=== PATIENT | male | born 1970 | race African-American/Black ===

== ENCOUNTER 2020-05-19 23:23 | Emergency (ER) | payer MEDICAID, OTHER ==
[~2020-05-19] VITALS: Ht 180.3 cm; Wt 129.0 kg
[2020-05-19 23:30] VITALS: BP 147/100
== END 2020-05-20 00:52 | disposition left against medical advice (07) ==
LOC: ER 23:32
DX: R51.9 Headache, unspecified (principal); E11.9 Type 2 diabetes mellitus without complications; E78.00 Pure hypercholesterolemia, unspecified
CPT/HCPCS: 93005; 99283

== ENCOUNTER 2024-11-13 13:18 | Inpatient (IN) | payer MEDICAID, OTHER ==
[~2024-11-13] VITALS: Ht 180.3 cm; Wt 110.7 kg
[2024-11-13 15:00] LABS: BASOPHILS % 0.5 % (0.0-2.0); EOSINOPHILS % 0.1 % (0.0-5.0); HEMATOCRIT. 38.7 % (42.0-52.0); HEMOGLOBIN. 12.2 g/dL (14.0-18.0); LYMPHOCYTES % 13.5 % (20.0-50.0); MEAN CORPUSCULAR HEMOGLOBIN 26.4 pg (28.0-32.0); MEAN CORPUSCULAR HGB CONC 31.6 g/dL (31.0-37.0); MEAN CORPUSCULAR VOLUME 83.7 fL (80.0-94.0); MEAN PLATELET VOLUME 9.6 fl (7.4-10.4); MONOCYTES % 10.1 % (2.0-8.0); NEUTROPHILS % 75.8 % (40.0-76.0); PLATELET 206 x1000/uL (130-400); RED BLOOD CELL COUNT 4.62 mill/uL (4.7-6.1); RED CELL DISTRIBUTION WIDTH 19.8 % (11.6-14.6); WHITE BLOOD COUNT 7.3 x1000/uL (4.5-11.0)
[2024-11-13] MEDS: SODIUM CHLORIDE 0.9% 1,000 ML IV ONE (15:02)
[2024-11-13 15:09] LABS: CHLORIDE 103 mEq/L (98-107); POTASSIUM 4.8 mEq/L (3.5-5.1); SODIUM 139 mEq/L (136-145)
[2024-11-13 15:10] LABS: CALCIUM 9.4 mg/dL (8.7-10.4); CARBON DIOXIDE 21 mEq/L (21-32)
[2024-11-13 15:11] LABS: INR 1.1
[2024-11-13 15:15] LABS: CREATININE 1.6 mg/dL (0.6-1.3); ETHANOL BLOOD < 10 mg/dL (<10); UREA NITROGEN BLOOD 19 mg/dL (9-23)
[2024-11-13 15:17] LABS: BETA HYDROXYBUTYRATE 0.5 mMol/L (0.0-0.3)
[2024-11-13 15:28] LABS: CLARITY URINE CLEAR (CLEAR); COLOR URINE YELLOW (YELLOW); GLUCOSE URINE 3+ (NEGATIVE); KETONES URINE TRACE (NEGATIVE); LEUKOCYTE ESTERASE URINE NEGATIVE (NEGATIVE); NITRITE URINE NEGATIVE (NEGATIVE); OCCULT BLOOD URINE NEGATIVE (NEGATIVE); PROTEIN URINE NEGATIVE (NEGATIVE); SPECIFIC GRAVITY URINE 1.036 (1.005-1.030); UROBILINOGEN URINE 0.2 E.U./dL (0.2-1.0)
[2024-11-13 15:40] LABS: *AMPHETAMINES SCREEN URINE NEGATIVE (NEGATIVE); *BARBITURATES SCREEN URINE NEGATIVE (NEGATIVE); *BENZODIAZEPINES SCREEN URINE NEGATIVE (NEGATIVE); *COCAINE SCREEN URINE NEGATIVE (NEGATIVE); CANNABINOID URINE SCREEN NEGATIVE (NEGATIVE); ECSTASY MDMA SCREEN URINE NEGATIVE (NEGATIVE); METHADONE URINE SCREEN NEGATIVE (NEGATIVE); OPIATES URINE SCREEN NEGATIVE (NEGATIVE); PHENCYCLIDINE URINE SCREEN NEGATIVE (NEGATIVE)
[2024-11-13 15:48] LABS: GLUCOSE 443 mg/dL (70-105); TROPONIN I HIGH SENSITIVITY 77 ng/L (3.0-53)
[2024-11-13 16:03] LABS: SQUAMOUS EPITHELIAL CELL URINE FEW /lpf (RARE/1+)
[2024-11-13 16:04] LABS: BACTERIA URINE NONE SEEN; RBC URINE NONE SEEN /hpf (0-2); WBC URINE 0-2 /hpf (0-2)
[2024-11-13] MEDS: METOPROLOL TARTRATE 5MG/5ML VIAL IV NR (16:09)
[2024-11-13] MEDS: INSULIN REGULAR (HUMULIN R) 1000UNITS/10ML VIAL IV NR (16:48)
[2024-11-13] MEDS: ASPIRIN 325MG EC TABLET PO NR (16:49)
[2024-11-13 17:09] LABS: TROPONIN I HIGH SENSITIVITY 80 ng/L (3.0-53)
[2024-11-13 20:00] VITALS: BP 108/80; PULSE 118; RESP 19; TEMP 36.3; O2SAT 98
[2024-11-13 20:01] VITALS: BP 114/81; PULSE 95; RESP 19; TEMP 36.3
[2024-11-13] MEDS ORDERED: HYDROCODONE/ACETAMINOPHEN 5/325MG TABLET PO PRN (20:15)
[2024-11-13] MEDS ORDERED: NA PHOS,M-B/NA PHOS,DI-BA ENEMA 118ML PR PRN (20:15)
[2024-11-13] MEDS ORDERED: CLONIDINE 0.1MG TABLET PO PRN (20:15)
[2024-11-13] MEDS ORDERED: MAGNESIUM/ALUMINUM HYDROXIDE/SIMETHICONE 30ML UDC PO PRN (20:15)
[2024-11-13] MEDS ORDERED: ONDANSETRON HCL 4MG/2ML INJ IV PRN (20:15)
[2024-11-13] MEDS ORDERED: GUAIFENESIN 200MG/10ML SUGAR FREE UDC PO PRN (20:15)
[2024-11-13] MEDS ORDERED: DOCUSATE SODIUM 100MG CAPSULE PO PRN (20:15)
[2024-11-13] MEDS ORDERED: ACETAMINOPHEN 325MG TABLET PO PRN (20:15)
[2024-11-13] MEDS ORDERED: IPRATROPIUM/ALBUTEROL 0.5-3(2.5)MG/3ML NEB HHN PRN (20:15)
[2024-11-13] MEDS ORDERED: DEXTROSE 50% WATER 50ML SYRINGE IV PRN (20:45)
[2024-11-13] MEDS: ENOXAPARIN 120MG/0.8ML SYR SUBCUT SCH (21:12)
[2024-11-13] MEDS: INSULIN LISPRO 100 UNITS/ML SUBCUT SCH (21:13)
[2024-11-13] MEDS: BLOOD SUGAR DIAGNOSTIC STRIP TEST SCH (21:13)
[2024-11-14] VITALS (10 sets, daily range): BP systolic 87–125; BP diastolic 53–100; PULSE 65–138; RESP 18–20; TEMP 35.9–37.4; O2SAT 96–98
[2024-11-14 03:46] LABS: IRON 35 ug/dL (65-175)
[2024-11-14 03:49] LABS: CREATINE KINASE 77 IU/L (46-171); FOLIC ACID (FOLATE) SERUM 13.28 ng/mL (>5.38); TOTAL IRON BINDING CAPACITY 291 ug/dl (250-425)
[2024-11-14 03:51] LABS: FERRITIN 61 ng/mL (22-322); VITAMIN B12 SERUM 805 pg/mL (211-911)
[2024-11-14 04:08] LABS: LACTIC ACID 4.1 mmol/L (0.4-2.0); TROPONIN I HIGH SENSITIVITY 96 ng/L (3.0-53)
[2024-11-14] MEDS ORDERED: FURO20TA4 PO (04:41)
[2024-11-14] MEDS ORDERED: MEDIHONEY (04:41)
[2024-11-14] MEDS ORDERED: PRIL20 PO (04:41)
[2024-11-14] MEDS ORDERED: SPIR25TA6 PO (04:41)
[2024-11-14] MEDS ORDERED: ASPI-1160 PO (04:41)
[2024-11-14] MEDS ORDERED: AMI2 MT (04:41)
[2024-11-14] MEDS ORDERED: LORA10TA7 PO (04:41)
[2024-11-14] MEDS ORDERED: METO-385 PO (04:41)
[2024-11-14] MEDS ORDERED: GABA-1180 PO (04:41)
[2024-11-14] MEDS ORDERED: METF-907 PO (04:41)
[2024-11-14] MEDS ORDERED: APIX5TAB PO (04:41)
[2024-11-14] MEDS ORDERED: POTA-203 PO (04:41)
[2024-11-14] MEDS ORDERED: EMPA10TA PO (04:41)
[2024-11-14] MEDS ORDERED: DILT240C78 PO (04:41)
[2024-11-14] MEDS ORDERED: ATOR-2 PO (04:41)
[2024-11-14] MEDS ORDERED: SPIRONOLACTONE 25MG TABLET PO SCH (07:15)
[2024-11-14 08:51] LABS: BASOPHILS % 0.8 % (0.0-2.0); EOSINOPHILS % 0.4 % (0.0-5.0); HEMATOCRIT. 40.7 % (42.0-52.0); HEMOGLOBIN. 12.7 g/dL (14.0-18.0); LYMPHOCYTES % 29.8 % (20.0-50.0); MEAN CORPUSCULAR HEMOGLOBIN 26.5 pg (28.0-32.0); MEAN CORPUSCULAR HGB CONC 31.3 g/dL (31.0-37.0); MEAN CORPUSCULAR VOLUME 84.7 fL (80.0-94.0); MEAN PLATELET VOLUME 9.3 fl (7.4-10.4); MONOCYTES % 8.2 % (2.0-8.0); NEUTROPHILS % 60.8 % (40.0-76.0); PLATELET 206 x1000/uL (130-400); RED CELL DISTRIBUTION WIDTH 19.7 % (11.6-14.6); WHITE BLOOD COUNT 7.9 x1000/uL (4.5-11.0)
[2024-11-14] MEDS ORDERED: AMIODARONE 200MG TABLET PO SCH (09:00)
[2024-11-14] MEDS ORDERED: ASPIRIN 81MG EC TABLET PO SCH (09:00)
[2024-11-14 09:26] LABS: ALANINE AMINOTRANSFERASE 20 IU/L (10-49); CREATINE KINASE 70 IU/L (46-171)
[2024-11-14 09:27] LABS: ALBUMIN 3.8 g/dL (3.2-4.8); ASPARTATE AMINOTRANSFERASE 24 IU/L (<34); BILIRUBIN DIRECT 0.1 mg/dL (<=3.0); TROPONIN I HIGH SENSITIVITY 90 ng/L (3.0-53)
[2024-11-14 09:28] LABS: BILIRUBIN TOTAL 0.4 mg/dL (0.1-1.0); PROTEIN TOTAL 7.8 g/dL (6.0-8.3)
[2024-11-14] MEDS: PANTOPRAZOLE 40MG DR TABLET PO SCH (09:49)
[2024-11-14] MEDS: EMPAGLIFLOZIN 10MG TABLET PO SCH (09:49)
[2024-11-14] MEDS: METOPROLOL TARTRATE 25MG TABLET PO SCH (09:49)
[2024-11-14] MEDS: GABAPENTIN 300MG CAPSULE PO SCH (09:49)
[2024-11-14] MEDS: LOSARTAN 25 MG TABLET PO SCH (09:49)
[2024-11-14] MEDS: INSULIN LISPRO 100 UNITS/ML SUBCUT SCH (09:54)
[2024-11-14] MEDS: FUROSEMIDE 20MG/2ML VIAL IVP SCH (09:54)
[2024-11-14] MEDS: INSULIN GLARGINE 100 UNITS/ML SUBCUT SCH (09:55)
[2024-11-14] MEDS: DILTIAZEM HCL 30MG TABLET PO NR (10:15)
[2024-11-14 10:17] LABS: CREATININE URINE RANDOM 72.2 mg/dL
[2024-11-14 13:39] LABS: CHLORIDE 108 mEq/L (98-107); POTASSIUM 4.3 mEq/L (3.5-5.1); SODIUM 143 mEq/L (136-145)
[2024-11-14 13:40] LABS: CALCIUM 9.2 mg/dL (8.7-10.4); CARBON DIOXIDE 24 mEq/L (21-32)
[2024-11-14 13:45] LABS: TRIGLYCERIDE 105 mg/dL (0-150); UREA NITROGEN BLOOD 14 mg/dL (9-23)
[2024-11-14 13:46] LABS: LDL CHOLESTEROL 47 mg/dL (5-100)
[2024-11-14 13:47] LABS: ALBUMIN 3.5 g/dL (3.2-4.8); CHOLESTEROL 112 mg/dL (<200); HDL CHOLESTEROL 42 mg/dL (>55)
[2024-11-14 13:49] LABS: T4 FREE 1.47 ng/dL (0.89-1.76); THYROID STIMULATING HORMONE 1.94 uIU/mL (0.55-4.78)
[2024-11-14 14:06] LABS: LACTIC ACID 3.5 mmol/L (0.4-2.0)
[2024-11-14 14:11] LABS: GLUCOSE 217 mg/dL (70-105)
[2024-11-14] MEDS: DILTIAZEM HCL 60MG TABLET PO SCH (14:51)
[2024-11-14] MEDS: SODIUM HYPOCHLORITE 0.125% 473ML SOLUTION TOP SCH (14:51)
[2024-11-14] MEDS ORDERED: ATORVASTATIN CALCIUM 40MG TABLET PO SCH (21:00)
[2024-11-14] MEDS: ATORVASTATIN CALCIUM 40MG TABLET PO SCH (21:12)
[2024-11-15] VITALS (8 sets, daily range): BP systolic 105–149; BP diastolic 55–88; PULSE 72–120; RESP 18–20; TEMP 35.9–37.2; O2SAT 96–98
[2024-11-15] MEDS: MELATONIN 3MG TABLET PO PRN (02:06)
[2024-11-15 06:04] LABS: CARBON DIOXIDE 22 mEq/L (21-32); CHLORIDE 107 mEq/L (98-107); POTASSIUM 4.4 mEq/L (3.5-5.1); SODIUM 142 mEq/L (136-145)
[2024-11-15 06:09] LABS: CREATININE 1.2 mg/dL (0.6-1.3)
[2024-11-15 06:11] LABS: GLUCOSE 253 mg/dL (70-105); UREA NITROGEN BLOOD 19 mg/dL (9-23)
[2024-11-15 06:23] LABS: HEMATOCRIT 36.9 % (42.0-52.0); HEMOGLOBIN 11.8 g/dL (14.0-18.0); MEAN CORPUSCULAR HEMOGLOBIN 26.1 pg (28.0-32.0); MEAN CORPUSCULAR VOLUME 81.6 fL (80.0-94.0); PLATELET 190 x1000/uL (130-400); RED BLOOD CELL COUNT 4.52 mill/uL (4.7-6.1)
[2024-11-15] MEDS: ACETAMINOPHEN 325MG TABLET PO PRN (09:07)
[2024-11-16] MEDS ORDERED: SPIRONOLACTONE 25MG TABLET PO SCH (09:00)
== END 2024-11-15 16:30 | disposition home or self-care (01) | DRG 201 ==
LOC: ER 13:18 → EDBEDREQ 17:25 → 7WST 18:01
PROVIDERS: ADMIT Hospitalist; ATTEND Hospitalist
DX: I48.91 Unspecified atrial fibrillation (principal); I21.A1 Myocardial infarction type 2; I50.23 Acute on chronic systolic (congestive) heart failure; I42.9 Cardiomyopathy, unspecified; E11.65 Type 2 diabetes mellitus with hyperglycemia; I13.0 Hypertensive heart and chronic kidney disease with heart failure and stage 1 through stage 4 chronic kidney disease, or unspecified chronic kidney disease; E11.22 Type 2 diabetes mellitus with diabetic chronic kidney disease; E78.00 Pure hypercholesterolemia, unspecified; I25.10 Atherosclerotic heart disease of native coronary artery without angina pectoris; S91.301A Unspecified open wound, right foot, initial encounter; N18.9 Chronic kidney disease, unspecified; S91.302A Unspecified open wound, left foot, initial encounter; S90.122A Contusion of left lesser toe(s) without damage to nail, initial encounter; R26.9 Unspecified abnormalities of gait and mobility; Z79.01 Long term (current) use of anticoagulants; Z79.4 Long term (current) use of insulin; Z79.82 Long term (current) use of aspirin; Z79.84 Long term (current) use of oral hypoglycemic drugs; Z79.899 Other long term (current) drug therapy; Z87.891 Personal history of nicotine dependence; Z89.431 Acquired absence of right foot; W01.0XXA Fall on same level from slipping, tripping and stumbling without subsequent striking against object, initial encounter; Y93.89 Activity, other specified; Y92.89 Other specified places as the place of occurrence of the external cause; Y99.8 Other external cause status
CPT/HCPCS: 36415; 71045; 73630; 73718; 80048; 80061; 80076; 80305; 80320; 81003; 82010; 82040; 82550; 82570; 82607; 82728; 82746; 82962; 83036; 83540; 83550; 83605; 83880; 83930; 83935; 84300; 84439; 84443; 84484; 84540; 85025; 85027; 85379; 93005; 93306; 93923; 97162; 97166; 97530; 97535; 99285; A4606; J1650; J1815; J1940; J3490; J7030; G0480

== ENCOUNTER 2025-06-18 19:45 | Inpatient (IN) | payer MEDICAID ==
[~2025-06-18] VITALS: Ht 177.8 cm; Wt 102.1 kg
[~2025-06-18 19:45] MED LIST: AMIO200T8 MT; APIX5TAB PO; ASPI-1160 PO; ATOR-2 PO; DILT240C78 PO; EMPA10TA PO; FURO20TA4 PO; GABA-1180 PO; LORA10TA7 PO; METF-907 PO; METO-385 PO; POTA-203 PO; PRIL20 PO; SPIR25TA6 PO
[2025-06-18 19:50] VITALS: O2SAT 100
[2025-06-18] MEDS ORDERED: VANCOMYCIN 1000MG/250ML 250 ML IV SCH (22:00)
[2025-06-18 23:53] LABS: HEMATOCRIT. 38.0 % (42.0-52.0); HEMOGLOBIN. 12.2 g/dL (14.0-18.0); MEAN PLATELET VOLUME 8.4 fl (7.4-10.4); PLATELET 286 x1000/uL (130-400); RED BLOOD CELL COUNT 4.30 mill/uL (4.7-6.1); RED CELL DISTRIBUTION WIDTH 14.7 % (11.6-14.6)
[2025-06-18] MEDS: PIPERACILLIN/TAZO 3.375G/50ML 50 ML IV SCH (23:59)
[2025-06-19 00:06] LABS: CREATININE 1.2 mg/dL (0.6-1.3); UREA NITROGEN BLOOD 19 mg/dL (9-23)
[2025-06-19] MEDS: VANCOMYCIN 1G PREMIX 200 ML IV SCH (00:32)
[2025-06-19] MEDS: INSULIN REGULAR (HUMULIN R) 1000UNITS/10ML VIAL IV NR (00:50)
[2025-06-19 01:21] LABS: LYMPHOCYTES % MANUAL 7.0 % (20.0-50.0); MONOCYTES % MANUAL 11.0 % (2.0-8.0); NEUTROPHILS % MANUAL 82.0 % (45.0-75.0); PLATELET ESTIMATE NORMAL
[2025-06-19] MEDS ORDERED: MAGNESIUM/ALUMINUM HYDROXIDE/SIMETHICONE 30ML UDC PO PRN (01:30)
[2025-06-19] MEDS ORDERED: DEXTROSE 50% WATER 50ML SYRINGE IV PRN (01:30)
[2025-06-19] MEDS ORDERED: IPRATROPIUM/ALBUTEROL 0.5-3(2.5)MG/3ML NEB HHN PRN (01:30)
[2025-06-19] MEDS ORDERED: ONDANSETRON HCL 4MG/2ML INJ IV PRN (01:30)
[2025-06-19] MEDS ORDERED: ACETAMINOPHEN 325MG TABLET PO PRN (01:30)
[2025-06-19 03:15] VITALS: BP 126/66; PULSE 68; RESP 18; TEMP 36.3624
[2025-06-19] MEDS: INSULIN GLARGINE 100 UNITS/ML SUBCUT NR (03:23)
[2025-06-19 04:00] VITALS: BP 131/64; PULSE 56; RESP 19; TEMP 36.6; O2SAT 100
[2025-06-19 04:49] LABS: CLARITY URINE CLEAR (CLEAR); GLUCOSE URINE 3+ (NEGATIVE); KETONES URINE 1+ (NEGATIVE); LEUKOCYTE ESTERASE URINE 1+ (NEGATIVE); NITRITE URINE NEGATIVE (NEGATIVE); OCCULT BLOOD URINE TRACE (NEGATIVE); PH URINE 6.0 (4.5-8.0); PROTEIN URINE NEGATIVE (NEGATIVE); SPECIFIC GRAVITY URINE 1.036 (1.005-1.030); UROBILINOGEN URINE 1.0 E.U./dL (0.2-1.0)
[2025-06-19 04:56] LABS: *AMPHETAMINES SCREEN URINE NEGATIVE (NEGATIVE)
[2025-06-19 04:57] LABS: *BARBITURATES SCREEN URINE NEGATIVE (NEGATIVE); *BENZODIAZEPINES SCREEN URINE NEGATIVE (NEGATIVE); *COCAINE SCREEN URINE NEGATIVE (NEGATIVE); CANNABINOID URINE SCREEN NEGATIVE (NEGATIVE); ECSTASY MDMA SCREEN URINE NEGATIVE (NEGATIVE); METHADONE URINE SCREEN NEGATIVE (NEGATIVE); OPIATES URINE SCREEN NEGATIVE (NEGATIVE); PHENCYCLIDINE URINE SCREEN NEGATIVE (NEGATIVE)
[2025-06-19 05:07] LABS: BACTERIA URINE NONE SEEN; COLOR URINE YELLOW (YELLOW); RBC URINE NONE SEEN /hpf (0-2); SQUAMOUS EPITHELIAL CELL URINE FEW /lpf (RARE/1+)
[2025-06-19 05:08] LABS: YEAST URINE 1+
[2025-06-19] MEDS: BLOOD SUGAR DIAGNOSTIC STRIP TEST SCH (06:53)
[2025-06-19] MEDS: GABAPENTIN 300MG CAPSULE PO SCH (06:54)
[2025-06-19] MEDS: INSULIN LISPRO 100 UNITS/ML SUBCUT SCH ×2 (07:54→09:00)
[2025-06-19 08:00] VITALS: BP 132/69; PULSE 52; RESP 15; TEMP 36.5; O2SAT 100
[2025-06-19] MEDS: METOPROLOL SUCCINATE 50MG ER TABLET PO SCH (09:00)
[2025-06-19] MEDS: TAMSULOSIN HCL 0.4MG SR CAPSULE PO SCH (09:00)
[2025-06-19] MEDS: AMIODARONE 200MG TABLET PO SCH (09:00)
[2025-06-19] MEDS: SACUBITRIL/VALSARTAN 24MG/26MG TABLET PO SCH (09:42)
[2025-06-19] MEDS: PANTOPRAZOLE SODIUM 40 MG/VIAL IV SCH (09:42)
[2025-06-19] MEDS: FUROSEMIDE 40MG/4ML VIAL IVP SCH (09:42)
[2025-06-19] MEDS: APIXABAN 5 MG TABLET PO SCH (09:43)
[2025-06-19] MEDS: EMPAGLIFLOZIN 10MG TABLET PO SCH (09:43)
[2025-06-19] MEDS: ASPIRIN 81MG TABLET PO SCH (09:43)
[2025-06-19] MEDS: SPIRONOLACTONE 25MG TABLET PO SCH (09:46)
[2025-06-19 11:37] LABS: BASOPHILS % 0.6 % (0.0-2.0); EOSINOPHILS % 0.3 % (0.0-5.0); HEMATOCRIT. 34.7 % (42.0-52.0); HEMOGLOBIN. 11.3 g/dL (14.0-18.0); LYMPHOCYTES % 9.2 % (20.0-50.0); MEAN PLATELET VOLUME 8.3 fl (7.4-10.4); MONOCYTES % 5.9 % (2.0-8.0); NEUTROPHILS % 84.0 % (40.0-76.0); PLATELET 271 x1000/uL (130-400); RED BLOOD CELL COUNT 3.94 mill/uL (4.7-6.1); RED CELL DISTRIBUTION WIDTH 14.5 % (11.6-14.6)
[2025-06-19 11:39] LABS: CREATININE 1.0 mg/dL (0.6-1.3); UREA NITROGEN BLOOD 16 mg/dL (9-23)
[2025-06-19 12:00] VITALS: BP 108/63; PULSE 57; RESP 19; TEMP 36.2; O2SAT 98
[2025-06-19] MEDS: VANCOMYCIN 1GM/200ML PMX (BAXTER) IV SCH (12:53)
[2025-06-19 13:14] LABS: HEPATITIS C AB EQUIVICOL (Negative)
[2025-06-19 16:00] VITALS: BP 111/67; PULSE 57; RESP 15; TEMP 36.7; O2SAT 100
[2025-06-19 16:18] LABS: FOLIC ACID (FOLATE) SERUM 14.06 ng/mL (>5.38)
[2025-06-19 16:19] LABS: VITAMIN B12 SERUM 649 pg/mL (211-911)
[2025-06-19] MEDS: DIGOXIN 125MCG TABLET PO SCH (18:00)
[2025-06-19 20:00] VITALS: BP 121/67; PULSE 59; RESP 17; TEMP 36.5; O2SAT 100
[2025-06-19] MEDS ORDERED: INSULIN GLARGINE 100 UNITS/ML SUBCUT SCH (22:00)
[2025-06-19] MEDS: ATORVASTATIN CALCIUM 40MG TABLET PO SCH (22:05)
[2025-06-19] MEDS: INSULIN GLARGINE 100 UNITS/ML SUBCUT SCH (22:35)
[2025-06-20] VITALS: BP 104/57; PULSE 66; RESP 18; TEMP 36.8; O2SAT 100
[2025-06-20] MEDS ORDERED: ACETAMINOPHEN 1000MG/100ML 100 ML IV NR (03:45)
[2025-06-20 04:00] VITALS: BP 108/63; PULSE 59; RESP 20; TEMP 36.4; O2SAT 100
[2025-06-20] MEDS: ACETAMINOPHEN 1000MG/100ML 100 ML IV ONE (04:20)
[2025-06-20 07:18] LABS: CREATININE 1.1 mg/dL (0.6-1.3); TRIGLYCERIDE 90 mg/dL (0-150)
[2025-06-20 07:19] LABS: UREA NITROGEN BLOOD 18 mg/dL (9-23)
[2025-06-20 07:20] LABS: ASPARTATE AMINOTRANSFERASE 19 IU/L (<34); LDL CHOLESTEROL 54 mg/dL (5-100)
[2025-06-20 07:21] LABS: BILIRUBIN DIRECT 0.2 mg/dL (<=3.0); BILIRUBIN TOTAL 0.5 mg/dL (0.1-1.0)
[2025-06-20 07:23] LABS: PROTEIN TOTAL 7.0 g/dL (6.0-8.3); T4 FREE 0.99 ng/dL (0.89-1.76)
[2025-06-20 07:27] LABS: PLATELET 281 x1000/uL (130-400); RED BLOOD CELL COUNT 3.84 mill/uL (4.7-6.1); RED CELL DISTRIBUTION WIDTH 14.1 % (11.6-14.6)
[2025-06-20 08:00] VITALS: BP 121/68; PULSE 54; RESP 19; TEMP 36.3; O2SAT 100
[2025-06-20 08:39] LABS: ERYTHROCYTE SEDIMENTATION RATE 99 mm/hr (0-20)
[2025-06-20] MEDS: METOPROLOL SUCCINATE 25MG ER TABLET PO SCH (09:00)
[2025-06-20 12:00] VITALS: BP 123/69; PULSE 52; RESP 20; TEMP 37.6; O2SAT 99
[2025-06-20 16:00] VITALS: BP 124/66; PULSE 56; RESP 18; TEMP 36.9; O2SAT 100
[2025-06-20 20:00] VITALS: BP 142/64; PULSE 56; RESP 18; TEMP 36.4; O2SAT 100
[2025-06-21 04:00] VITALS: BP 113/58; PULSE 58; RESP 18; TEMP 36.6; O2SAT 100
[2025-06-21] MEDS: ACETAMINOPHEN 325MG TABLET PO PRN (05:19)
[2025-06-21 08:00] VITALS: BP 117/61; PULSE 53; RESP 16; TEMP 36.3; O2SAT 99
[2025-06-21] MEDS ORDERED: BUPIVACAINE HCL/PF 0.5% (5MG/ML) 10ML ONE ×2 (08:28→09:28)
[2025-06-21] MEDS ORDERED: LIDOCAINE HCL 1% 10 MG/ML 10ML VIAL ONE (08:28)
[2025-06-21] MEDS ORDERED: PROPOFOL 200MG/20ML VIAL IV ONE (09:26)
[2025-06-21] MEDS ORDERED: PHENYLEPHRINE HCL 10MG/ML 1ML IV ONE (09:31)
[2025-06-21] MEDS ORDERED: PROPOFOL 10MG/ML 100ML 100 ML IV ONE (09:50)
[2025-06-21] MEDS ORDERED: ONDANSETRON HCL 4MG/2ML INJ IV PRN (10:00)
[2025-06-21] MEDS ORDERED: HYDROMORPHONE HCL/PF 1MG/ML INJ IV PRN (10:00)
[2025-06-21] MEDS ORDERED: HYDRALAZINE 20MG/ML VIAL IV PRN ×2 (10:00)
[2025-06-21] MEDS ORDERED: MIDAZOLAM HCL 2 MG/2 ML VIAL ONE (10:06)
[2025-06-21] MEDS ORDERED: ONDANSETRON HCL 4MG/2ML INJ ONE (10:25)
[2025-06-21] MEDS ORDERED: POLYMYXIN B SULFATE 500000 UNITS/VIAL ONE (10:41)
[2025-06-21 16:00] VITALS: BP 101/48; PULSE 62; RESP 16; TEMP 36.5; O2SAT 99
[2025-06-21 20:00] VITALS: BP 113/56; PULSE 60; RESP 16; TEMP 36.4; O2SAT 100
[2025-06-22] VITALS: BP 121/53; PULSE 58; RESP 20; TEMP 36.5; O2SAT 99
[2025-06-22 04:00] VITALS: BP 96/44; PULSE 62; RESP 20; TEMP 36.3; O2SAT 99
[2025-06-22 07:07] LABS: BASOPHILS % 0.2 % (0.0-2.0); EOSINOPHILS % 0.5 % (0.0-5.0); HEMATOCRIT. 31.6 % (42.0-52.0); HEMOGLOBIN. 10.3 g/dL (14.0-18.0); LYMPHOCYTES % 7.7 % (20.0-50.0); MEAN PLATELET VOLUME 8.4 fl (7.4-10.4); MONOCYTES % 7.3 % (2.0-8.0); NEUTROPHILS % 84.3 % (40.0-76.0); PLATELET 275 x1000/uL (130-400); RED BLOOD CELL COUNT 3.57 mill/uL (4.7-6.1); RED CELL DISTRIBUTION WIDTH 14.1 % (11.6-14.6)
[2025-06-22 08:00] VITALS: PULSE 70; RESP 20; TEMP 36.7; O2SAT 98
[2025-06-22 12:00] VITALS: PULSE 70; RESP 20; TEMP 36.7; O2SAT 98
[2025-06-22] MEDS ORDERED: DEXTROSE 50% WATER 50ML SYRINGE IV PRN (15:15)
[2025-06-22 16:00] VITALS: BP 112/64; PULSE 82; RESP 20; TEMP 36.1; O2SAT 99
[2025-06-22] MEDS: BLOOD SUGAR DIAGNOSTIC STRIP TEST SCH (17:00)
[2025-06-22] MEDS: INSULIN LISPRO 100 UNITS/ML SUBCUT SCH (18:44)
[2025-06-22 20:00] VITALS: BP 110/62; PULSE 57; RESP 20; TEMP 36.4; O2SAT 100
[2025-06-22] MEDS ORDERED: INSULIN GLARGINE 100 UNITS/ML SUBCUT SCH (22:00)
[2025-06-22] MEDS: INSULIN GLARGINE 100 UNITS/ML SUBCUT SCH (22:33)
[2025-06-23] VITALS: BP 107/57; PULSE 56; RESP 18; TEMP 36.5; O2SAT 98
[2025-06-23 04:00] VITALS: BP 98/59; PULSE 60; RESP 20; TEMP 36.6; O2SAT 97
[2025-06-23 08:00] VITALS: BP 124/82; PULSE 51; RESP 18; TEMP 36.4; O2SAT 98
[2025-06-23 12:00] VITALS: BP 129/57; PULSE 59; RESP 20; TEMP 36.6; O2SAT 99
[2025-06-23 16:00] VITALS: BP 119/54; PULSE 67; RESP 20; TEMP 36.6; O2SAT 100
[2025-06-23 20:00] VITALS: BP 103/63; PULSE 59; RESP 16; TEMP 36.7; O2SAT 99
[2025-06-23] MEDS: INSULIN GLARGINE 100 UNITS/ML SUBCUT SCH (22:58)
[2025-06-24] VITALS: BP 139/60; PULSE 51; RESP 18; TEMP 36.3; O2SAT 100
[2025-06-24 04:00] VITALS: BP 107/52; PULSE 55; RESP 17; TEMP 36.4; O2SAT 98
[2025-06-24 06:44] LABS: PLATELET 341 x1000/uL (130-400); RED BLOOD CELL COUNT 3.47 mill/uL (4.7-6.1); RED CELL DISTRIBUTION WIDTH 14.1 % (11.6-14.6)
[2025-06-24 07:13] LABS: CREATININE 0.9 mg/dL (0.6-1.3)
[2025-06-24 07:14] LABS: UREA NITROGEN BLOOD 9 mg/dL (9-23)
[2025-06-24 08:00] VITALS: BP 108/47; PULSE 52; RESP 17; TEMP 36.3; O2SAT 97
[2025-06-24 12:00] VITALS: BP 126/65; PULSE 53; RESP 17; TEMP 36.3; O2SAT 99
[2025-06-24] MEDS ORDERED: LIDOCAINE HCL 1% 10 MG/ML 10ML VIAL ONE (12:47)
[2025-06-24] MEDS ORDERED: IOHEXOL-350 50 ML BOTTLE ONE (14:58)
[2025-06-24] MEDS ORDERED: IOHEXOL-350 100 ML BOTTLE ONE (14:58)
[2025-06-24 16:00] VITALS: BP 103/50; PULSE 61; RESP 20; TEMP 36.5; O2SAT 100
[2025-06-24] MEDS: PIPERACILLIN/TAZO 3.375G/50ML 50 ML IV SCH (17:00)
[2025-06-24 20:00] VITALS: BP 100/61; PULSE 57; RESP 17; TEMP 36.7; O2SAT 99
[2025-06-25] VITALS: BP 101/59; PULSE 54; RESP 17; TEMP 36.4; O2SAT 98
[2025-06-25 04:00] VITALS: BP 110/70; PULSE 60; RESP 16; TEMP 36.3; O2SAT 99
[2025-06-25 07:50] LABS: BASOPHILS % 0.3 % (0.0-2.0); EOSINOPHILS % 1.0 % (0.0-5.0); HEMATOCRIT. 36.8 % (42.0-52.0); HEMOGLOBIN. 12.0 g/dL (14.0-18.0); LYMPHOCYTES % 12.7 % (20.0-50.0); MEAN PLATELET VOLUME 7.7 fl (7.4-10.4); MONOCYTES % 5.7 % (2.0-8.0); NEUTROPHILS % 80.3 % (40.0-76.0); PLATELET 436 x1000/uL (130-400); RED BLOOD CELL COUNT 4.19 mill/uL (4.7-6.1); RED CELL DISTRIBUTION WIDTH 14.0 % (11.6-14.6)
[2025-06-25 08:00] VITALS: BP 115/70; PULSE 55; RESP 17; TEMP 36.7; O2SAT 97
[2025-06-25 08:04] LABS: UREA NITROGEN BLOOD 11 mg/dL (9-23)
[2025-06-25 08:17] LABS: CREATININE 0.4 mg/dL (0.6-1.3)
[2025-06-25 12:00] VITALS: BP 111/54; PULSE 70; RESP 18; TEMP 36.9; O2SAT 97
[2025-06-25 16:00] VITALS: BP 101/59; PULSE 59; RESP 17; TEMP 36.4; O2SAT 96
[2025-06-25] MEDS: TETANUS, DIPHTHERIA, PERTUSSIS VAC/PF 0.5ML (>10YR OLD) IM ONE (16:49)
[2025-06-25 20:00] VITALS: BP 100/55; PULSE 59; RESP 16; TEMP 36.4; O2SAT 97
[2025-06-25] MEDS: INSULIN GLARGINE 100 UNITS/ML SUBCUT SCH (22:35)
[2025-06-26] VITALS: BP 112/60; PULSE 60; RESP 17; TEMP 36.2; O2SAT 97
[2025-06-26 04:00] VITALS: BP 138/69; PULSE 49; RESP 16; TEMP 36.4; O2SAT 98
[2025-06-26 08:00] VITALS: BP 111/60; PULSE 87; RESP 16; TEMP 36.6; O2SAT 98
[2025-06-26 12:00] VITALS: BP 107/56; PULSE 65; RESP 17; TEMP 36.5; O2SAT 98
[2025-06-26] MEDS ORDERED: NON FORMULARY MED XX SCH (12:00)
[2025-06-26] MEDS ORDERED: METR-167 MT (12:01)
[2025-06-26] MEDS ORDERED: LANTUSUD SUBCUT (12:01)
[2025-06-26 14:29] VITALS: BP 107/56; PULSE 65; RESP 17; TEMP 97.7
[2025-06-26 16:00] VITALS: BP 105/58; PULSE 62; RESP 18; TEMP 37; O2SAT 99
== END 2025-06-26 16:36 | disposition home health service (06) | DRG 710 ==
LOC: ER 19:45 → 8EST 22:49 → EDBEDREQSVC 23:09 → EDBEDREQTM 23:09 → EDBEDREQ 23:09 → ENRESERV 23:41 → 8EST 06-20 13:30
PROVIDERS: ADMIT Hospitalist; ATTEND Hospitalist
PROC: 0Y6S0Z0 Detachment at Left 2nd Toe, Complete, Open Approach (ICD-10-PCS; principal; 2025-06-21)
PROC: 0Y6W0Z0 Detachment at Left 4th Toe, Complete, Open Approach (ICD-10-PCS; 2025-06-21)
PROC: 0Y6U0Z0 Detachment at Left 3rd Toe, Complete, Open Approach (ICD-10-PCS; 2025-06-21)
PROC: 02HV33Z Insertion of Infusion Device into Superior Vena Cava, Percutaneous Approach (ICD-10-PCS; 2025-06-24)
PROC: B548ZZA Ultrasonography of Superior Vena Cava, Guidance (ICD-10-PCS; 2025-06-24)
DX: A41.9 Sepsis, unspecified organism (principal); E11.10 Type 2 diabetes mellitus with ketoacidosis without coma; A48.0 Gas gangrene; E11.52 Type 2 diabetes mellitus with diabetic peripheral angiopathy with gangrene; D64.9 Anemia, unspecified; E11.40 Type 2 diabetes mellitus with diabetic neuropathy, unspecified; M86.8X7 Other osteomyelitis, ankle and foot; N39.0 Urinary tract infection, site not specified; Z79.01 Long term (current) use of anticoagulants; I11.0 Hypertensive heart disease with heart failure; E11.621 Type 2 diabetes mellitus with foot ulcer; L97.518 Non-pressure chronic ulcer of other part of right foot with other specified severity; I50.22 Chronic systolic (congestive) heart failure; E11.65 Type 2 diabetes mellitus with hyperglycemia; E78.00 Pure hypercholesterolemia, unspecified; I48.91 Unspecified atrial fibrillation; Z99.3 Dependence on wheelchair; Z79.82 Long term (current) use of aspirin; Z79.899 Other long term (current) drug therapy
CPT/HCPCS: 36415; 36573; 71045; 73630; 75635; 80048; 80061; 80076; 80202; 80305; 81003; 82550; 82607; 82728; 82746; 82962; 83036; 83540; 83550; 83605; 84145; 84439; 84443; 85025; 85027; 85651; 86705; 87070; 87075; 87077; 87106; 87186; 87340; 88304; 88311; 90715; 93005; 93922; 93970; 97022; 97162; 97164; 97166; 97530; 99285; A4606; C1725; J0665; J1815; J1938; J2003; J2250; J2371; J2405; J2470; J2543; J2704; J3373; J3490; Q9967; J0131